=== PATIENT | male | born 1970 | race Caucasian/White ===

== ENCOUNTER → 2019-11-08 12:42 | Outpatient (BNVA) | payer MEDICARE, SELFPAY | PROVIDERS: Family Provider Family Medicine; PCP Nurse Practitioner; Visit Provider Family Medicine | DX: E78.2 Mixed hyperlipidemia (principal); E11.65 Type 2 diabetes mellitus with hyperglycemia; I25.10 Atherosclerotic heart disease of native coronary artery without angina pectoris; I10 Essential (primary) hypertension; G62.9 Polyneuropathy, unspecified; E78.5 Hyperlipidemia, unspecified | CPT/HCPCS: 80053; 80061; 83036; 85025 ==

== ENCOUNTER → 2020-04-08 11:44 | Outpatient (BNVA) | payer MEDICARE, SELFPAY | PROVIDERS: Family Provider Family Medicine; PCP Nurse Practitioner; Visit Provider Family Medicine | DX: E78.2 Mixed hyperlipidemia (principal); I25.10 Atherosclerotic heart disease of native coronary artery without angina pectoris; E78.5 Hyperlipidemia, unspecified; I10 Essential (primary) hypertension; E11.42 Type 2 diabetes mellitus with diabetic polyneuropathy; F17.210 Nicotine dependence, cigarettes, uncomplicated | CPT/HCPCS: 80053; 80061; 83036; 85025 ==

== ENCOUNTER → 2020-09-10 17:52 | Outpatient (BNVA) | payer MEDICARE, SELFPAY | PROVIDERS: Family Provider Family Medicine; PCP Nurse Practitioner; Visit Provider Family Medicine | DX: I10 Essential (primary) hypertension (principal); E78.2 Mixed hyperlipidemia; E11.9 Type 2 diabetes mellitus without complications | CPT/HCPCS: 80053; 80061; 83036; 85025 ==

== ENCOUNTER → 2020-12-20 10:28 | Outpatient (BNVA) | payer MEDICARE, SELFPAY | PROVIDERS: Family Provider Family Medicine; PCP Family Medicine; Visit Provider Family Medicine | DX: E11.9 Type 2 diabetes mellitus without complications (principal); E78.2 Mixed hyperlipidemia; I10 Essential (primary) hypertension; I25.10 Atherosclerotic heart disease of native coronary artery without angina pectoris; E78.5 Hyperlipidemia, unspecified; J20.9 Acute bronchitis, unspecified; Z68.29 Body mass index [BMI] 29.0-29.9, adult; F17.210 Nicotine dependence, cigarettes, uncomplicated | CPT/HCPCS: 80053; 80061; 83036; 84443; 85025 ==

== ENCOUNTER → 2021-04-22 12:07 | Outpatient (BNVA) | payer MEDICARE, SELFPAY | PROVIDERS: Family Provider Family Medicine; PCP Family Medicine; Visit Provider Family Medicine | DX: E11.9 Type 2 diabetes mellitus without complications (principal); I10 Essential (primary) hypertension; E78.2 Mixed hyperlipidemia; I25.10 Atherosclerotic heart disease of native coronary artery without angina pectoris | CPT/HCPCS: 80053; 80061; 83036; 84443 ==

== ENCOUNTER 2021-05-19 08:13 | Day surgery (SDC) | payer MEDICARE, SELFPAY ==
[2021-05-14 09:09] VITALS: BMI 29.2
[2021-05-14 09:45] LABS: Add Urine Microscopic? NO; Charge for UA Resulting for Rev
[2021-05-14 09:51] LABS: Basophils # 0.1 10^3/uL (0.0-0.1); Basophils % 0.4 %; Eosinophils # 0.1 10^3/uL (0.0-0.8); Hematocrit 44.2 % (42.0-52.0); Hemoglobin 14.1 g/dL (11.7-16.6); Lymphocytes # 1.7 10^3/uL (0.8-4.8); Lymphocytes % 14.8 %; Mean Corpuscular HGB Conc 31.9 g/dL (30.0-36.0); Mean Corpuscular Hemoglobin 26.6 pg (28.0-34.0); Mean Corpuscular Volume 83.2 fl (80-94); Mean Platelet Volume 9.7 fL (7.4-10.4); Monocytes # 0.5 10^3/uL (0.2-0.9); Monocytes % 4.6 %; Neutrophils # 9.06 10^3/uL (1.8-7.7); Neutrophils % 78.9 %; Nucleated Red Blood Cells % 0 %; Platelet Count 314 10^3/cmm (130-400); Red Blood Count 5.31 10^6/uL (4.1-5.3); Red Cell Distribution Width 14.6 % (12.1-15.1); White Blood Count 11.5 10^3/uL (4.0-10.0)
--- NOTE | 2021-05-14 09:54 | ANES.PREANE2 ---
Pre-Anesthetic Assessment Pre-Anesthetic Assessment: Height/Weight: Height 1.78 m Weight 92.533 kg Preop Diagnosis: defibrillator malfunctio Proposed Procedure: Operation Date: 05/19/21 09:30 Proposed Procedures p Defibrillator Revision(Not Applicable) - Kp Craig MD Familial anesthetic complications: none Social: Social History: Tobacco and No alcohol Exam: Pre-Anes Outpt Exam: alert, oriented x 3, clear to auscultation bilaterally and regular rate & rhythm Airway: Cervical ROM: WNL MP: 2 Dentition: Other (no teeth) Pulmonary: Pulmonary: Cough (post-nasal drip (severe) - can't usually lay flat on his back) and SORIANO CV/HEM: CV/HEM: Angina (Stable), CAD (stents), DE and PVD Comments: ICD EF - 35% Metabolic: Metabolic: DM and Hyperlipidemia Neuropsych: Neuropsych: Neuropathy Anesthetic Plan: ASA status: 3 Anesthesia: MAC Other: Possible need for general if unable to tolerate supine position without coughing/postnasal drip Risk of > 500 ml blood loss (7ml/kg in children): No PFSH Anesthesia PFSH: Medical History (Updated 04/26/21 @ 15:13 by Jacinda Godoy MD) CAD (coronary artery disease) Diabetes Hyperlipidemia Hypertension ICD (implantable cardioverter-defibrillator) in place Pacemaker (~2013) Surgical History History of appendectomy History of tonsillectomy Family History Other Myocardial infarct Social History Smoking and tobacco status: current every day smoker cigarettes Packs smoked per day: 1.5 Years cigarettes smoked: 30 Second hand smoke exposure: No Alcohol intake: current Alcohol intake frequency: holidays/special occasions only Lives independently: Yes Household members: significant other Marital status: Current occupational status: retired History of recent travel: No Current gender identity: Male Data Anesthesia CBC & Chem 7: 05/14/21 09:35 05/14/21 09:35 Other Labs: Laboratory Results - last 48 hr 05/14/21 09:35 WBC 11.5 H RBC 5.31 H Hgb 14.1 Hct 44.2 MCV 83.2 MCH 26.6 L MCHC 31.9 RDW 14.6 Plt Count 314 MPV 9.7 Neut % (Auto) 78.9 Lymph % (Auto) 14.8 [place] % (Auto) 4.6 Eos % (Auto) 1.0 Baso % (Auto) 0.4 Neut # (Auto) 9.06 H Lymph # (Auto) 1.7 [place] # (Auto) 0.5 Eos # (Auto) 0.1 Baso # (Auto) 0.1 Nucleated RBC % (auto) 0 Nucleated RBCs # 0.0 Cardiac Studies: No Data to Display
[2021-05-14 10:11] LABS: Bilirubin Urine Neg (Negative); Blood Urine Neg (Negative); Glucose Urine UA Norm (Normal); Ketones Urine Negative (Negative); Nitrate Urine Negative (Negative); Protein Urine Neg (Negative); Urine Appearance Clear (CLEAR); Urine Color Yellow (Yellow); pH Urine 7 (5-7)
[2021-05-14 10:12] LABS: Leukocyte Esterase Urine Negative (Negative); Urobilinogen Urine Norm (Negative)
[2021-05-14 10:28] LABS: Anion Gap 16.8 (5-19); Blood Urea Nitrogen 11 mg/dL (6-20); Calcium 9.6 mg/dL (8.5-10.5); Carbon Dioxide 25 mmol/L (22-29); Chloride 94 mmol/L (98-107); Glucose 138 mg/dL (65-115); Osmolality Calculated 274 mOsm/kg (285-295); Potassium 4.8 mmol/L (3.5-5.1); Sodium 131 mmol/L (136-145)
[2021-05-15 15:19] LABS: Coronavirus Test Green County Not Detected
--- NOTE | 2021-05-19 08:16 | XR_ITS ---
WS: [id number] XR chest 1V portable [id number] REASON FOR EXAM: AICD generator exchange FINDINGS: Battery pack overlying the left chest with intact pacemaker lead transvenous left subclavian vein to the right ventricular apex. The heart size is at the upper limits of normal. Calcified granulomatous changes in both hemithoraces with no definite pulmonary parenchymal or pleura l abnormality. Bony thorax is intact. XR/XR chest 1V portable [id number] IMPRESSION: Left chest pacemaker as above. No acute abnormality identified.
[2021-05-19 08:20] VITALS: BP 108/70; PULSE 74; RESP 18; TEMP 36.3; O2SAT 94
[2021-05-19] MEDS: sodium chloride 0.9% 1,000 ML 30 ML IV (08:54)
[2021-05-19 08:55] LABS: Glucose Point of Care 169 mg/dL (70-110)
--- NOTE | 2021-05-19 10:46 | P.ANESUD_ITS ---
Pre-Anesthetic Update Pre-Anesthetic Assessment: Date of Surgery/Procedure: 05/19/21 Preop Donna gnosis: AICD generator at end of service Proposed Procedure: Operation Date: 05/19/21 09:30 Proposed Procedures p Defibrillator Revision(Not Applicable) - Kp Craig MD Any changes to Pre-Anesthetic Assessment?: No Last Intake: Intake Last Liquid Date 05/18/21 Last Liquid Time 22:00 Last Solid Date 05/18/21 Last Solid Time 22:00 Labs Last 48hrs: Laboratory Results - last 48 hr 05/19/21 08:50 POC Glucose 169 H Vitals: Temperature 97.3 F L 05/19/21 08:20 Temperature Source Temporal Artery S can 05/19/21 08:20 Pulse Rate 74 05/19/21 08:20 Respiratory Rate 18 05/19/21 08:20 Blood Pressure 108/70 05/19/21 08:20 Blood Pressure Dara n 82 05/19/21 08:20 Pulse Oximetry 94 05/19/21 08:20 Oxygen Delivery Me thod 05/19/21 08:26 Exam: Pre-Anes Outpt Exam: alert, oriented x 3, clear to auscultation bilaterally and regular rate & rhythm Cardiac Studies: No Data to Display
--- NOTE | 2021-05-19 11:34 | W.PM.OPSUD ---
Surgery/Procedure H&P Update DATE OF PROCEDURE: May 19, 2021 DATE H&P PERFORMED: 04/24/21 H&P UPDATE INFORMATION: I have reviewed H&P completed within last 30 days, I have examined patient prior to procedure and No changes to prior documentation PREOP DIAGNOSIS: AICD generator at end of service PLANNED PROCEDURE: Operation Date: 05/19/21 09:30 Proposed Procedures p Defibrillator Revision(Not Applicable) - Kp Craig MD
[2021-05-19] MEDS: lidocaine 1% INJ 20 mL SUBCUT (12:00)
[2021-05-19] MEDS: ceFAZolin 1,000 mg SDV 1000 MG IRRIGATION (12:00)
[2021-05-19 12:34] VITALS: BP 84/58; PULSE 76; RESP 16; TEMP 36.4; O2SAT 91
--- NOTE | 2021-05-19 12:36 | PM.OP ---
Operative Report Date of procedure: May 19, 2021 Pre-op Diagnosis: AICD generator at end of service Post-op diagnosis: same Procedure Done: AICD generator exchange Implants: Biotronik AICD generator Specimens removed/disposition: Old generator delivered to enrollment eligibility representative Pathology: none sent Surgeon: Kp Craig Anesthesia: MAC and Local Complications: None Condition: stable Disposition: same day Brief History: 51-year-old gentleman With ischemic cardiomyopathy status post PA and multiple stenting. AICD generator replaced approximately 6 years ago, now at end of service. Generator exchange has been recommended. Details risk of procedure carefully discussed with Mr. Saenz. Appropriate scans have been reviewed and signed. Procedure: Mr. Saenz was appropriately positioned and sterilely prepped and draped. IV consicious sedation was given with anesthesia monitoring. 1% lidocaine was infiltrated through the prior insertion incision site. # 15 scalpel blade was used to incise the skin down to subcutaneous layer. Subsequently, using sharp and blunt dissection the pseudocapsule to the old generator was reached and opened with a scalpel blade. This area was then enhanced utilizing Metzenbaum scissors with care taken not to injure the pacing leads. Once the pocket was adequate opened, hemostats were utilized to deliver the old generator. Set screws were released and the leads were removed and inserted properly into the new generator with set screws then secured. The old generator was removed from the field. The incision was irrigated with antibiotic solution. Hemostasis was confirmed. The new generator was placed back into the old subcutaneous pocket. The wound was then closed in 2 layers of 3-0 Vicryl suture. Skin was closed in a subcuticular manner with 4-0 undyed Vicryl suture. A 2 layer pressure dressing was then applied. The entire system was interrogated and appropriate parameters obtained. Mr. Saenz tolerated procedure well and was taken to the recovery room in stable condition. I did counselor supervisor with the family at the completion of the procedure. Biotronik AICD Generator: Intica Prosper 7 VR-T DX serial number: [id number] RV sensing 21.7 mV with an impedance of 558 ohms and threshold of 0.6 V Pacing parameters VVI with a low rate of 40 VT1 = 171 bpm ATPx5 40j x8 VT2 = 200 bpm ATPx5 40j x8
[2021-05-19 12:40] VITALS: BP 96/59; PULSE 78; RESP 18; O2SAT 91
[2021-05-19 12:45] VITALS: BP 102/73; PULSE 75; RESP 17; TEMP 36.4; O2SAT 91
[2021-05-19 12:48] VITALS: BP 102/63; PULSE 75; RESP 18; TEMP 36.5; O2SAT 96
[2021-05-19 13:15] VITALS: BP 116/71; PULSE 65; RESP 18; TEMP 36.6; O2SAT 97
--- NOTE | 2021-05-19 14:47 | ANE.PACU2 ---
Inpatient post-anesthesia follow up: Airway intact: Yes Vital signs: Temperature 97.8 F Pulse Rate 65 Respiratory Rate 18 Blood Pressure 116/71 Pulse Oximetry 97 Oxygen Delivery Me thod Room Air Oxygen Flow Rate Fraction of Inspir ed Oxygen Hydration adequate: Yes Nausea and vomiting: No Pain level: 2 Mental status: Baseline
== END 2021-05-19 13:40 | disposition home or self-care (01) ==
PROVIDERS: PCP Family Medicine; Visit Provider Thoracic Surgery (Cardiothoracic Vascular Surgery)
PROC: 0JWT0PZ Revision of Cardiac Rhythm Related Device in Trunk Subcutaneous Tissue and Fascia, Open Approach (ICD-10-PCS; CPT 33263; principal; 2021-05-19 09:10)
DX: Z45.02 Encounter for adjustment and management of automatic implantable cardiac defibrillator (principal); E78.5 Hyperlipidemia, unspecified; E11.40 Type 2 diabetes mellitus with diabetic neuropathy, unspecified; I25.10 Atherosclerotic heart disease of native coronary artery without angina pectoris
CPT/HCPCS: 33263; 36416; 71045; 80048; 81003; 82962; 85025; 87635; C1722; J0690; J2370; J2704; J3010; J7030

== ENCOUNTER → 2021-10-21 10:37 | Outpatient (BNVA) | payer MEDICARE, SELFPAY | PROVIDERS: PCP Family Medicine; Visit Provider Family Medicine | DX: L30.9 Dermatitis, unspecified (principal); I10 Essential (primary) hypertension; I25.10 Atherosclerotic heart disease of native coronary artery without angina pectoris; E78.2 Mixed hyperlipidemia; G62.9 Polyneuropathy, unspecified | CPT/HCPCS: 80053; 80061; 83036; 85025 ==

== ENCOUNTER → 2021-11-12 11:07 | Outpatient (BNVA) | payer MEDICARE, SELFPAY | PROVIDERS: PCP Family Medicine; Visit Provider Internal Medicine Cardiovascular Disease | DX: Z95.810 Presence of automatic (implantable) cardiac defibrillator (principal) ==

== ENCOUNTER 2021-12-13 13:24 | Emergency (ER) | payer MEDICARE, SELFPAY ==
[2021-12-13 13:26] VITALS: BP 136/115; PULSE 90; RESP 14; O2SAT 90; BMI 30.1
--- NOTE | 2021-12-13 13:32 | ED_ITS ---
Documented by User: VIKKI Stapleton 12/13/21 14:56 HPI - Epistaxis General: Chief complaint: Epistaxis Stated complaint: NOSE BLEED Time Seen by Provider: 12/13/21 13:31 Source: patient and EMS Mode of arrival: EMS Limitations: no limitations History of Present Illness: Patient is a nice 51-year-old male presents to ED today via EMS for evaluation of a nosebleed. Patient states nosebleed began around 930 this morning when he awoke. He states he tried everything to try to get it to stop but nosebleed persisted for several hours thus prompting him to call EMS. He has no history of nosebleeds. No recent trauma. No known precipitating factor such as cough, sneeze, bending over, etc. States blood pressure is normally controlled. States he is on blood thinners of Aspirin and Plavix. MD complaint: epistaxis Location: bilateral nostril Onset (ago): hour(s) Duration: constant Context: aspirin use and other anticoagulant use (plavix ) Associated symptoms: Reports no associated symptoms; Deny fever(s), headache(s), sinus pain or vomiting Treatment prior to arrival: nose pinching Review of Systems Const: Denies: fever(s), chills, body aches, fatigue or malaise ENMT: Reports: epistaxis (currently; no history); Denies: throat pain, odynophagia, nasal congestion, nasal obstruction or sinus pain Card: Denies: chest pain Resp: Denies: dyspnea GI: Denies: nausea or vomiting Musc: Denies: neck pain Neuro: Denies: headache(s) or dizziness [facility] ED PFSH: Medical History (Updated 12/13/21 @ 14:49 by VIKKI Stapleton) CAD (coronary artery disease) Diabetes Hyperlipidemia Hypertension ICD (implantable cardioverter-defibrillator) in place Pacemaker (~2013) Surgical History History of appendectomy History of tonsillectomy Family History Other Myocardial infarct Social History Smoking and tobacco status: current every day smoker cigarettes Packs smoked per day: 1.5 Years cigarettes smoked: 30 Second hand smoke exposure: No Alcohol intake: current Alcohol intake frequency: holidays/special occasions only Lives independently: Yes Household members: significant other Marital status: Current occupational status: retired History of recent travel: No Current gender identity: Male Physical Exam Const: COMMON NORMALS: no acute distress, patient oriented x3, no limitations and alert GENERAL APPEARANCE: cooperative HENMT: COMMON NORMALS: normocephalic and atraumatic HEAD & SCALP: normal to inspection, normocephalic and atraumatic FACE & SINUS: normal facial exam NOSE: Epistaxis present bilaterally clots present and source not visualized MOUTH: Normal oral and palatal mucosa present, lip normal and tongue normal THROAT: posterior oropharynx normal (apart from blood visualized ), tonsils normal and uvula midline Eye: GENERAL EYE: appearance normal, both eyes and all related structures Neck/C-Spine: COMMON NORMALS: full ROM GENERAL: Yes normal visual inspection Resp: COMMON NORMALS: normal respiratory effort and clear to auscultation bilaterally AUSCULTATION: clear to auscultation bilaterally Cardio: COMMON NORMALS: regular rate and regular rhythm RATE: regular rate RHYTHM: regular rhythm Neuro: LOTTIE COMA SCALE: document GCS findings Lottie coma scale eye openi ng: Spontaneous Lottie coma scale verbal response: Orientated Lottie coma scale motor response: Obey commands [place] coma scale total score: 15 COMMON NORMALS: patient oriented x3, CN's II-XII intact bilaterally, moves all extremities, no focal motor deficits and no sensory deficits noted SENSORIUM/ORIENTATION: Yes alert Procedures Epistaxis Control Nostril: right Nose Prepped With: oxymetazoline Direct Inspection: unable to visualize Clots Removed by: blowing nose Cautery Used: none Device Inserted: hemostatic balloon (5.5cm anterior pack to R nare) Patient Tolerated Procedure: well Course Vital Signs: Vital signs: Vital Signs Temperature 97.4 F L 12/13/21 14:51 Pulse Rate 84 12/13/21 14:51 Respiratory Rate 16 12/13/21 14:51 Blood Pressure 139/90 12/13/21 14:51 Pulse Oximetry 92 12/13/21 14:51 MDM - Epistaxis Medical Decision Making Direct visualization of bleed initially difficult. Bilateral nares were instilled with oxymetazoline and clamp applied for approximately 15 minutes. On re-examination bleeding had slowed enough for me to localize bleed coming from R nare. It was packed with a 5.5cm anterior rhino rocket with good results. Patient was watched over 30 mins with no bleeding. He is stable for discharge. He will need to have balloon removed in 24- 72 hours by PCP. If he is not able to get into them he needs to return to the ED. Vital signs are stable. Blood work is unremarkable. Patient does have chronic hyponatremia. Lab Data : 12/13/21 13:37 12/13/21 13:37 Laboratory Results WBC 5.8 10^3/uL (4.0-10.0) 12/13/21 13:37 RBC 5.49 10^6/uL (4.1-5.3) H 12/13/21 13:37 Hgb 14.4 g/dL (11.7-16.6) 12/13/21 13:37 Hct 44.9 % (42.0-52.0) 12/13/21 13:37 MCV 81.8 fl (80-94) 12/13/21 13:37 MCH 26.2 pg (28.0-34.0) L 12/13/21 13:37 MCHC 32.1 g/dL (30.0-36.0) 12/13/21 13:37 RDW 14.5 % (12.1-15.1) 12/13/21 13:37 Plt Count 281 10^3/cmm (130-400) 12/13/21 13:37 MPV 10.0 fL (7.4-10.4) 12/13/21 13:37 Neut % (Auto) 68.4 % 12/13/21 13:37 Lymph % (Auto) 23.3 % 12/13/21 13:37 [place] % (Auto) 6.2 % 12/13/21 13:37 Eos % (Auto) 1.2 % 12/13/21 13:37 Baso % (Auto) 0.7 % 12/13/21 13:37 Neut # (Auto) 3.99 10^3/uL (1.8-7.7) 12/13/21 13:37 Lymph # (Auto) 1.4 10^3/uL (0.8-4.8) 12/13/21 13:37 [place] # (Auto) 0.4 10^3/uL (0.2-0.9) 12/13/21 13:37 Eos # (Auto) 0.1 10^3/uL (0.0-0.8) 12/13/21 13:37 Baso # (Auto) 0.0 10^3/uL (0.0-0.1) 12/13/21 13:37 Nucleated RBC % (auto) 0 % 12/13/21 13:37 Nucleated RBCs # 0.0 /100WBC 12/13/21 13:37 PT 14.00 SECONDS (12.1-14.9) 12/13/21 13:37 INR 1.05 (0.8-1.2) 12/13/21 13:37 APTT 32.0 SECONDS (23.9-36.7) 12/13/21 13:37 Sodium 128 mmol/L (136-145) L 12/13/21 13:37 Potassium 4.6 mmol/L (3.5-5.1) 12/13/21 13:37 Chloride 93 mmol/L (98-107) L 12/13/21 13:37 Carbon Dioxide 25 mmol/L (22-29) 12/13/21 13:37 Anion Gap 14.6 (5-19) 12/13/21 13:37 BUN 7 mg/dL (6-20) 12/13/21 13:37 Creatinine 0.6 mg/dL (0.7-1.2) L 12/13/21 13:37 GFR Calculation 141.5 mL/min (90-130) H 12/13/21 13:37 Glucose 193 mg/dL (65-115) H 12/13/21 13:37 Calculated Osmolality 269 mOsm/kg (285-295) L 12/13/21 13:37 Calcium 9.7 mg/dL (8.5-10.5) 12/13/21 13:37 Total Bilirubin 0.5 mg/dL (0.15-1.2) 12/13/21 13:37 AST 10 U/L (0-40) 12/13/21 13:37 ALT 11 U/L (0-41) 12/13/21 13:37 Alkaline Phosphatase 149 IU/L (40-130) H 12/13/21 13:37 Total Protein 8.1 g/dL (6.6-8.7) 12/13/21 13:37 Albumin 4.1 g/dL (3.5-5.2) 12/13/21 13:37 Globulin 4.0 g/dL (1.3-4.6) 12/13/21 13:37 Discharge Plan Discharge Patient Disposition: Home Clinical Impression: Right-sided epistaxis Condition: Stable Prescriptions: No Action triamcinolone acetonide 0.1 % cream 1 applic topical BID Qty: 15 1RF carvedilol 12.5 mg tablet See Rx Instructions .ROUTE .COMPLEX Qty: 60 5RF Dose Instruction: Take 1 tablet by mouth twice daily Rx Instructions: Take 1 tablet by mouth twice daily clopidogrel 75 mg tablet 75 mg PO DAILY Qty: 30 5RF isosorbide mononitrate 30 mg tablet extended release 24 hr 30 mg PO QDAY Qty: 30 5RF lisinopril 5 mg tablet 5 mg PO DAILY Qty: 30 5RF glipizide 10 mg tablet 10 mg PO BID Qty: 60 5RF metformin 1,000 mg tablet 1,000 mg PO BID Qty: 60 5RF pioglitazone [Actos] 45 mg tablet 45 mg PO DAILY Qty: 30 5RF pregabalin 150 mg capsule 150 mg PO TID Qty: 90 4RF rosuvastatin [Crestor] 40 mg tablet 40 mg PO DAILY Qty: 30 2RF aspirin 325 mg Tablet 325 mg PO DAILY 0RF Discharge Orders: Discharge ED (Routine); Ordered 12/13/21 Ordered By: Krystal Tam Referrals: Soledad Morocho MD [Primary Care Provider] - Patient Instructions: Epistaxis - Adult Activity Restrictions/Additional Instructions: As we discussed you need to see your primary care provider on Wednesday or Wednesday at the latest to have your balloon packing removed. If you are unable to see them you need to return to the emergency department to have this removed. You need to return to the ED sooner for any continued severe bleeding, trouble breathing, or any other concerns you may have. Coding Level of Care Code ED Audio/Video Engineer for Chg Fwd Exam Detailed Documented by User: Manjinder Cano DO 12/15/21 06:17 HPI - Epistaxis General: Chief complaint: Epistaxis Stated complaint: NOSE BLEED Time Seen by Provider: 12/13/21 13:31 [facility] ED PFSH: Medical History (Updated 12/13/21 @ 14:49 by VIKKI Stapleton) CAD (coronary artery disease) Diabetes Hyperlipidemia Hypertension ICD (implantable cardioverter-defibrillator) in place Pacemaker (~2013) Surgical History History of appendectomy History of tonsillectomy Family History Other Myocardial infarct Social History Smoking and tobacco status: current every day smoker cigarettes Packs smoked per day: 1.5 Years cigarettes smoked: 30 Second hand smoke exposure: No Alcohol intake: current Alcohol intake frequency: holidays/special occasions only Lives independently: Yes Household members: significant other Marital status: Current occupational status: retired History of recent travel: No Current gender identity: Male Physical Exam Neuro: LOTTIE COMA SCALE: document GCS findings Lottie coma scale total score: 15 Course Vital Signs: Vital signs: Vital Signs Temperature 97.4 F L 12/13/21 14:51 Pulse Rate 84 12/13/21 14:51 Respiratory Rate 16 12/13/21 14:51 Blood Pressure 139/90 12/13/21 14:51 Pulse Oximetry 92 12/13/21 14:51 MDM - Epistaxis Medical Decision Making Direct visualization of bleed initially difficult. Bilateral nares were instilled with oxymetazoline and clamp applied for approximately 15 minutes. On re-examination bleeding had slowed enough for me to localize bleed coming from R nare. It was packed with a 5.5cm anterior rhino rocket with good results. Patient was watched over 30 mins with no bleeding. He is stable for discharge. He will need to have balloon removed in 24- 72 hours by PCP. If he is not able to get into them he needs to return to the ED. Vital signs are stable. Blood work is unremarkable. Patient does have chronic hyponatremia. Chart reviewed and patient discussed with midlevel. Agree with assessment and plan. Medical Records I reviewed the patient's medical records. Lab Data I reviewed the patient's lab results. : 12/13/21 13:37 12/13/21 13:37 Laboratory Results WBC 5.8 10^3/uL (4.0-10.0) 12/13/21 13:37 RBC 5.49 10^6/uL (4.1-5.3) H 12/13/21 13:37 Hgb 14.4 g/dL (11.7-16.6) 12/13/21 13:37 Hct 44.9 % (42.0-52.0) 12/13/21 13:37 MCV 81.8 fl (80-94) 12/13/21 13:37 MCH 26.2 pg (28.0-34.0) L 12/13/21 13:37 MCHC 32.1 g/dL (30.0-36.0) 12/13/21 13:37 RDW 14.5 % (12.1-15.1) 12/13/21 13:37 Plt Count 281 10^3/cmm (130-400) 12/13/21 13:37 MPV 10.0 fL (7.4-10.4) 12/13/21 13:37 Neut % (Auto) 68.4 % 12/13/21 13:37 Lymph % (Auto) 23.3 % 12/13/21 13:37 [place] % (Auto) 6.2 % 12/13/21 13:37 Eos % (Auto) 1.2 % 12/13/21 13:37 Baso % (Auto) 0.7 % 12/13/21 13:37 Neut # (Auto) 3.99 10^3/uL (1.8-7.7) 12/13/21 13:37 Lymph # (Auto) 1.4 10^3/uL (0.8-4.8) 12/13/21 13:37 [place] # (Auto) 0.4 10^3/uL (0.2-0.9) 12/13/21 13:37 Eos # (Auto) 0.1 10^3/uL (0.0-0.8) 12/13/21 13:37 Baso # (Auto) 0.0 10^3/uL (0.0-0.1) 12/13/21 13:37 Nucleated RBC % (auto) 0 % 12/13/21 13:37 Nucleated RBCs # 0.0 /100WBC 12/13/21 13:37 PT 14.00 SECONDS (12.1-14.9) 12/13/21 13:37 INR 1.05 (0.8-1.2) 12/13/21 13:37 APTT 32.0 SECONDS (23.9-36.7) 12/13/21 13:37 Sodium 128 mmol/L (136-145) L 12/13/21 13:37 Potassium 4.6 mmol/L (3.5-5.1) 12/13/21 13:37 Chloride 93 mmol/L (98-107) L 12/13/21 13:37 Carbon Dioxide 25 mmol/L (22-29) 12/13/21 13:37 Anion Gap 14.6 (5-19) 12/13/21 13:37 BUN 7 mg/dL (6-20) 12/13/21 13:37 Creatinine 0.6 mg/dL (0.7-1.2) L 12/13/21 13:37 GFR Calculation 141.5 mL/min (90-130) H 12/13/21 13:37 Glucose 193 mg/dL (65-115) H 12/13/21 13:37 Calculated Osmolality 269 mOsm/kg (285-295) L 12/13/21 13:37 Calcium 9.7 mg/dL (8.5-10.5) 12/13/21 13:37 Total Bilirubin 0.5 mg/dL (0.15-1.2) 12/13/21 13:37 AST 10 U/L (0-40) 12/13/21 13:37 ALT 11 U/L (0-41) 12/13/21 13:37 Alkaline Phosphatase 149 IU/L (40-130) H 12/13/21 13:37 Total Protein 8.1 g/dL (6.6-8.7) 12/13/21 13:37 Albumin 4.1 g/dL (3.5-5.2) 12/13/21 13:37 Globulin 4.0 g/dL (1.3-4.6) 12/13/21 13:37 Discharge Plan Discharge Patient Disposition: Home Clinical Impression: Right-sided epistaxis Condition: Stable Prescriptions: No Action triamcinolone acetonide 0.1 % cream 1 applic topical BID Qty: 15 1RF carvedilol 12.5 mg tablet See Rx Instructions .ROUTE .COMPLEX Qty: 60 5RF Dose Instruction: Take 1 tablet by mouth twice daily Rx Instructions: Take 1 tablet by mouth twice daily clopidogrel 75 mg tablet 75 mg PO DAILY Qty: 30 5RF isosorbide mononitrate 30 mg tablet extended release 24 hr 30 mg PO QDAY Qty: 30 5RF lisinopril 5 mg tablet 5 mg PO DAILY Qty: 30 5RF glipizide 10 mg tablet 10 mg PO BID Qty: 60 5RF metformin 1,000 mg tablet 1,000 mg PO BID Qty: 60 5RF pioglitazone [Actos] 45 mg tablet 45 mg PO DAILY Qty: 30 5RF pregabalin 150 mg capsule 150 mg PO TID Qty: 90 4RF rosuvastatin [Crestor] 40 mg tablet 40 mg PO DAILY Qty: 30 2RF aspirin 325 mg Tablet 325 mg PO DAILY 0RF Discharge Orders: Discharge ED (Routine); Ordered 12/13/21 Ordered By: Krystal Tam Referrals: Soledad Morocho MD [Primary Care Provider] - Patient Instructions: Epistaxis - Adult Activity Restrictions/Additional Instructions: As we discussed you need to see your primary care provider on Wednesday or Wednesday at the latest to have your balloon packing removed. If you are unable to see them you need to return to the emergency department to have this removed. You need to return to the ED sooner for any continued severe bleeding, trouble breathing, or any other concerns you may have. Coding Level of Care Code ED Audio/Video Engineer for Sathya Fwd Exam Detailed
[2021-12-13 13:42] LABS: Basophils % 0.7 %; Eosinophils # 0.1 10^3/uL (0.0-0.8); Eosinophils % 1.2 %; Hematocrit 44.9 % (42.0-52.0); Hemoglobin 14.4 g/dL (11.7-16.6); Lymphocytes # 1.4 10^3/uL (0.8-4.8); Lymphocytes % 23.3 %; Mean Corpuscular HGB Conc 32.1 g/dL (30.0-36.0); Mean Corpuscular Hemoglobin 26.2 pg (28.0-34.0); Mean Corpuscular Volume 81.8 fl (80-94); Monocytes # 0.4 10^3/uL (0.2-0.9); Monocytes % 6.2 %; Neutrophils # 3.99 10^3/uL (1.8-7.7); Neutrophils % 68.4 %; Nucleated Red Blood Cells % 0 %; Platelet Count 281 10^3/cmm (130-400); Red Blood Count 5.49 10^6/uL (4.1-5.3); Red Cell Distribution Width 14.5 % (12.1-15.1); White Blood Count 5.8 10^3/uL (4.0-10.0)
[2021-12-13 13:52] LABS: INR 1.05 (0.8-1.2)
[2021-12-13 14:03] VITALS: BP 136/81; PULSE 82; RESP 16; TEMP 36.8; O2SAT 92
[2021-12-13 14:03] LABS: Alanine Aminotransferase 11 U/L (0-41); Albumin Level 4.1 g/dL (3.5-5.2); Alkaline Phosphatase 149 IU/L (40-130); Anion Gap 14.6 (5-19); Aspartate Amino Transferase 10 U/L (0-40); Blood Urea Nitrogen 7 mg/dL (6-20); Calcium 9.7 mg/dL (8.5-10.5); Carbon Dioxide 25 mmol/L (22-29); Chloride 93 mmol/L (98-107); Glomerular Filtration Rate 141.5 mL/min (90-130); Glucose 193 mg/dL (65-115); Osmolality Calculated 269 mOsm/kg (285-295); Potassium 4.6 mmol/L (3.5-5.1); Sodium 128 mmol/L (136-145); Total Bilirubin 0.5 mg/dL (0.15-1.2); Total Protein 8.1 g/dL (6.6-8.7)
--- NOTE | 2021-12-13 14:36 | PC.NURSE ---
Resting, clip was removed, rhino packing still in place, no bleeding observed at this time. Pt is taking water, denies nausea.
[2021-12-13] MEDS: oxymetazoline 0.05% Nasal Spray 15 mL 2 SPRAY NOSTRIL-B (14:40)
[2021-12-13 14:51] VITALS: BP 139/90; PULSE 84; RESP 16; TEMP 36.3; O2SAT 92
== END 2021-12-13 15:04 | disposition home or self-care (01) ==
PROVIDERS: Emergency Provider Physician Assistant; PCP Family Medicine
DX: R04.0 Epistaxis (principal); Z79.02 Long term (current) use of antithrombotics/antiplatelets; Z79.82 Long term (current) use of aspirin; E87.1 Hypo-osmolality and hyponatremia; I10 Essential (primary) hypertension; I25.10 Atherosclerotic heart disease of native coronary artery without angina pectoris; E11.9 Type 2 diabetes mellitus without complications; Z95.0 Presence of cardiac pacemaker; F17.210 Nicotine dependence, cigarettes, uncomplicated; Z79.84 Long term (current) use of oral hypoglycemic drugs
CPT/HCPCS: 30901; 80053; 85025; 85610; 85730; 99283

== ENCOUNTER 2021-12-15 13:02 | Emergency (ER) | payer MEDICARE, SELFPAY ==
[2021-12-15 13:11] VITALS: BP 142/85; PULSE 81; RESP 20; TEMP 36.4; O2SAT 93; BMI 30.1
--- NOTE | 2021-12-15 13:53 | W.ED.EPISTAX ---
HPI - Epistaxis General: Chief complaint: General Medical Stated complaint: nasal tube removal Time Seen by Provider: 12/15/21 13:19 Source: patient Mode of arrival: ambulatory Limitations: no limitations History of Present Illness: Patient is a nice 51-year-old male who presents to the ED today for removal of his right nare nasal balloon that was placed 48 hours ago by myself. Patient states he tried to have it removed at an outside clinic but they refused stating he needed to go back to the ED. Patient states since he was discharged home from the ED he has not had any bleeding from the nose. He does not complain of a headache or fevers. MD complaint: other (removal of nasal balloon) Location: right nostril Associated symptoms: Reports no associated symptoms; Deny fever(s) or sinus pain Review of Systems Const: Denies: fever(s), chills, body aches or fatigue Eyes: Denies: change in vision ENMT: Denies: nasal discharge, nasal congestion, epistaxis, post nasal drip or sinus pain PFSH ED PFSH: Medical History CAD (coronary artery disease) Diabetes Hyperlipidemia Hypertension ICD (implantable cardioverter-defibrillator) in place Pacemaker (~2013) Surgical History History of appendectomy History of tonsillectomy Family History Other Myocardial infarct Social History Smoking and tobacco status: current every day smoker cigarettes Packs smoked per day: 1.5 Years cigarettes smoked: 30 Second hand smoke exposure: No Alcohol intake: current Alcohol intake frequency: holidays/special occasions only Lives independently: Yes Household members: significant other Marital status: Current occupational status: retired History of recent travel: No Current gender identity: Male Physical Exam Const: COMMON NORMALS: no acute distress, patient oriented x3, no limitations and alert GENERAL APPEARANCE: cooperative ORIENTATION/CONSCIOUSNESS: Yes awake, Yes oriented to person, Yes oriented to place and Yes oriented to time HENMT: COMMON NORMALS: normocephalic, atraumatic and Normal external nose present HEAD & SCALP: normal to inspection, normocephalic and atraumatic FACE & SINUS: normal facial exam NOSE: Normal external nose present and Other nasal findings present (R nare rhino rocket in place w/o bleeding) Neuro: COMMON NORMALS: patient oriented x3 SENSORIUM/ORIENTATION: Yes alert, Yes oriented to person, Yes oriented to place and Yes oriented to time Course Vital Signs: Vital signs: Vital Signs Temperature 97.6 F 12/15/21 13:11 Pulse Rate 81 12/15/21 13:11 Respiratory Rate 20 H 12/15/21 13:11 Blood Pressure 142/85 12/15/21 13:11 Pulse Oximetry 93 12/15/21 13:11 MDM - Epistaxis Medical Decision Making Right nare Rhino Rocket removed by myself. Patient was monitored for 20 minutes without any bleeding. Patient states he feels well and would like to go home. Strict return to ED precautions verbally given. Visual inspection of the nasal cavity following Rhino Rocket removal was normal. Discharge Plan Discharge Patient Disposition: Home Clinical Impression: Encounter for removal of nasal pack Condition: Stable Prescriptions: No Action triamcinolone acetonide 0.1 % cream 1 applic topical BID Qty: 15 1RF carvedilol 12.5 mg tablet See Rx Instructions .ROUTE .COMPLEX Qty: 60 5RF Dose Instruction: Take 1 tablet by mouth twice daily Rx Instructions: Take 1 tablet by mouth twice daily clopidogrel 75 mg tablet 75 mg PO DAILY Qty: 30 5RF isosorbide mononitrate 30 mg tablet extended release 24 hr 30 mg PO QDAY Qty: 30 5RF lisinopril 5 mg tablet 5 mg PO DAILY Qty: 30 5RF glipizide 10 mg tablet 10 mg PO BID Qty: 60 5RF metformin 1,000 mg tablet 1,000 mg PO BID Qty: 60 5RF pioglitazone [Actos] 45 mg tablet 45 mg PO DAILY Qty: 30 5RF pregabalin 150 mg capsule 150 mg PO TID Qty: 90 4RF rosuvastatin [Crestor] 40 mg tablet 40 mg PO DAILY Qty: 30 2RF aspirin 325 mg Tablet 325 mg PO DAILY 0RF Discharge Orders: Discharge ED (Routine); Ordered 12/15/21 Ordered By: Krystal Tam Referrals: Soledad Morocho MD [Primary Care Provider] - Coding Level of Care Code ED [employer] Assistant Manager for Chg Fwd
== END 2021-12-15 14:27 | disposition home or self-care (01) ==
PROVIDERS: Emergency Provider Physician Assistant; PCP Family Medicine
DX: Z09 Encounter for follow-up examination after completed treatment for conditions other than malignant neoplasm (principal)
CPT/HCPCS: 99281

== ENCOUNTER → 2022-03-31 13:21 | Outpatient (BNVA) | payer MEDICARE, SELFPAY | PROVIDERS: PCP Family Medicine; Visit Provider Family Medicine | DX: I10 Essential (primary) hypertension (principal); E78.2 Mixed hyperlipidemia; E11.9 Type 2 diabetes mellitus without complications; Z12.5 Encounter for screening for malignant neoplasm of prostate; Z12.11 Encounter for screening for malignant neoplasm of colon; N40.0 Benign prostatic hyperplasia without lower urinary tract symptoms | CPT/HCPCS: 80053; 80061; 83036; 84443; 85025; G0103 ==

== ENCOUNTER → 2023-01-12 08:48 | Outpatient (BNVA) | payer MEDICARE, SELFPAY | PROVIDERS: PCP Family Medicine; Visit Provider Internal Medicine Cardiovascular Disease | DX: Z45.02 Encounter for adjustment and management of automatic implantable cardiac defibrillator (principal) | CPT/HCPCS: 93296 ==

== ENCOUNTER → 2023-04-29 09:15 | Outpatient (BNVA) | payer MEDICARE, SELFPAY | PROVIDERS: PCP Family Medicine; Visit Provider Internal Medicine Cardiovascular Disease | DX: Z45.02 Encounter for adjustment and management of automatic implantable cardiac defibrillator (principal) | CPT/HCPCS: 93296 ==

== ENCOUNTER → 2023-11-24 23:35 | Outpatient (BNVA) | payer MEDICARE, SELFPAY | PROVIDERS: PCP Family Medicine; Visit Provider Internal Medicine | DX: Z45.02 Encounter for adjustment and management of automatic implantable cardiac defibrillator (principal) | CPT/HCPCS: 93296 ==